=== PATIENT | female | born 1935 | race Caucasian/White ===

== ENCOUNTER 2017-01-28 12:28 | Emergency (ER) | payer MEDICARE, OTHER ==
[~2017-01-28 12:28] MED LIST: ACETAMINOPHEN500 M1 PO; AEROECLIPSE II1 EACH INH; AMIODARONE HCL200 MG PO; COREG 3.125M3.125 MG PO; DUONEB 2.5-0.5M1 AMP INH; FEOSOL325 MG PO; K-DUR20 MEQ PO; LASIX20 MG PO; LIPITOR 10MG TA10 MG PO; NITROQUIK SL0.4 MG SL; OMEPRAZOLE20 M1 PO; PAXIL10 MG PO
== END 2017-01-28 12:40 | disposition left against medical advice (07) ==
LOC: FER 12:28
DX: T07 Unspecified multiple injuries (principal); W19.XXXA Unspecified fall, initial encounter; Z53.8 Procedure and treatment not carried out for other reasons